=== PATIENT | female | born 1965 | race Caucasian/White ===

== ENCOUNTER 2020-08-09 09:47 | Outpatient (CLI) | payer SELFPAY ==
--- NOTE | ~2020-08-09 | MM_ITS ---
EXAMINATION: MM screening [facility] BI w elida HISTORY: Screening TECHNIQUE: Craniocaudal and mediolateral oblique 3-D tomosynthesis images were obtained and synthetic 2-D images were generated. CAD analysis was submitted and interpreted. COMPARISON: Comparison to multiple prior studies sequentially, with oldest reviewed study dated 02/2016. BREAST PARENCHYMAL COMPOSITION: The breasts are extremely dense, which lowers the sensitivity of mamm ography. FINDINGS: There is no evidence of suspicious mass, calcification, or architectural distortion to sugg est malignancy in either breast. There has been no suspicious interval change. IMPRESSION: 1. No mammographic evidence of malignancy. 2. Recommend routine screening mammography in one year. BI-RADS Category 1: Negative Reviewed, dictated and finalized at location [facility]. ERER TORCH
== END 2020-08-09 09:48 | disposition home or self-care (01) ==
LOC: ANHIMG 09:52
PROVIDERS: PCP Obstetrics & Gynecology; Visit Provider Nurse Practitioner Obstetrics & Gynecology
DX: Z12.31 Encounter for screening mammogram for malignant neoplasm of breast (principal)
CPT/HCPCS: 77063; 77067

== ENCOUNTER 2020-09-24 16:37 | Emergency (ER) | payer OTHER, SELFPAY ==
--- NOTE | ~2020-09-24 | CT_ITS ---
EXAMINATION: CT abdomen pelvis w con DATE: 09/24/2020 18:53 INDICATION: Right lower quadrant abdominal pain TECHNIQUE: Computed tomography (CT) of the abdomen and pelvis was performed with 100 cc Omnipaque 350 intravenous contrast. Automated exposure control and iterative reconstruction technique were employe d. Exam dose: 263.59 mGy-cm total exam DLP. COMPARISON: None. FINDINGS: There is minimal dependent bilateral lower lobe atelectasis. Lower lung zones are clear of consolidation. Normal heart size. No pericardial or pleural effusion. The liver, gallbladder, spleen, pancreas, bile ducts and pancreatic duct, and adrenal glands and kidn eys are unremarkable, with the exception of 8 mm probable left renal cyst. No urinary tract calculus or hydroureteronephrosis is evident. The urinary bladder is unremarkable. The uterus and adnexal area s are unremarkable. There is minimal possibly physiologic free fluid in the dependent pelvis. Normal caliber of the abdominal aorta. No intraperitoneal or retroperitoneal or pelvic mass lesion or adenopathy. There is extensive inflammatory change around the hepatic flexure of the colon. There is diverticulos is in this area. There is thickening of the wall of the hepatic flexure of the colon. The findings page ggest diverticulitis of the hepatic flexure of the colon. Normal appendix. No abscess is identified. No bowel obstruction or bowel wall thickening is noted oth erwise. Included skeletal structures are unremarkable. IMPRESSION: Diverticulitis of the hepatic flexure of colon; no abscess is identified. Normal appendix. Minimal probable physiologic free fluid in the dependent pelvis Probable 8 mm left renal cyst Reviewed, dictated and finalized at [facility]. Reviewed, dictated and finalized at location [facility]. 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 Normal appendix. Minimal probable physiologic free fluid in the dependent pelvis Probable 8 mm left renal cyst
--- NOTE | ~2020-09-24 | US_ITS ---
US pelvic complete w TV DATE: 09/24/2020 17:50 INDICATION: Right adnexal pain TECHNIQUE: Real-time imaging via transabdominal and transvaginal approaches COMPARISON: None FINDINGS: The uterus measures 7 cm height, 4 cm transverse and 3.6 cm anteroposterior dimension. The central endometrial echo complex measures 1.5 cm. Right ovary measures approximately 1.6 x 1.1 x 1.5 cm. Left ovary measures approximately 1.6 x 1.5 x 1.9 cm. There is vascular flow to both ovaries. No pelvic mass or abnormal pelvic fluid collection is evident. IMPRESSION: No significant abnormality Reviewed, dictated and finalized at [facility]. Reviewed, dictated and finalized at location [facility]. 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
[2020-09-24 16:44] VITALS: BP 131/90; PULSE 90; RESP 18; TEMP 36.8; O2SAT 100
--- NOTE | 2020-09-24 17:42 | ED.ABDPAIN ---
HPI - Abdominal Pain General Chief Complaint: Abdominal Pain Stated Complaint: RLQ ABD PAIN Time Seen by Provider: 09/24/20 16:40 Source: patient Mode of arrival: ambulatory Limitations: no limitations History of Present Illness HPI narrative: Patient is a 54-year-old female who presents to emergency department with right lower abdominal pain patient notes that the pain began last night has persisted into the day the pain did cause some nausea and vomiting patient notes that she did have a rough intercourse prior night but denies discharge or vaginal bleeding patient on arrival to emergency department does not appear to be in distress is uncomfortable with activity and movement patient took Tylenol with some improvement Related Data Allergies Allergy/AdvReac Type Severity Reaction Status Date / Time No Known Allergies Verified 09/24/20 17:58 Review of Systems Review of Systems: All systems reviewed & are unremarkable except as noted in HPI and below PMFSH Past Medical History Medical History (Updated 09/24/20 @ 19:27 by Marcell Eng PA-C) Ovarian cyst Family History Family History (Updated 04/27/14 @ 07:13 by DOCTOR UNKNOWN) Mother Family history of thyroid disease Father Family history of elevated blood lipids Grandparent Family history of Alzheimer's disease Family history of lung cancer Social History Social History Smoking status: Never smoker Second hand tobacco smoke exposure: No Alcohol intake: current Exam Narrative: Exam Narrative: GENERAL: Well-appearing, well-nourished, and in no acute distress. HEAD: Normocephalic, atraumatic. EYES: PERRLA and EOMI. ENT: Nares clear, no rhinorrhea or epistaxis. Mucous membranes moist. CHEST: Clear to auscultation. No respiratory distress. No wheezes rales or rhonchi HEART: Regular rate and rhythm. No murmur heard. Normal peripheral pulses. ABDOMEN: Soft, tenderness throughout the abdomen with voluntary guarding in the right lower quadrant, nondistended EXTREMITIES: Normal range of motion. No edema. SKIN: Warm, dry, no rash. NEURO: No focal deficits. Alert and oriented x3. PSYCH: Normal mood and affect. Course Course Emergency Course: Patient is a 54-year-old female who presented with right-sided abdominal pain that began acutely today patient was found to have diverticulitis no abscess no perforation patient with marked improvement with medications in the emergency department was hydrated patient is afebrile nontoxic-appearing without emesis will be discharged home provided with GI referral given strict reasons to return felt appropriate for outpatient reevaluation Vital Signs Vital signs: Vital Signs Temperature 98.2 F 09/24/20 16:44 Pulse Rate 90 09/24/20 16:44 Respiratory Rate 18 09/24/20 16:44 Blood Pressure 131/90 09/24/20 16:44 Pulse Oximetry 100 09/24/20 16:44 Temperature 98.2 F 09/24/20 16:44 Pulse Rate 90 09/24/20 16:44 Respiratory Rate 18 09/24/20 16:44 Blood Pressure 131/90 09/24/20 16:44 Pulse Oximetry 100 09/24/20 16:44 MDM - Abdominal Pain MDM Narrative Medical decision making narrative: Patient with diagnosis of diverticulitis no complications seen will be given GI referral patient agrees with this plan and feels comfortable with outpatient management Differential Diagnosis Differential diagnosis: Likely abdominal pain and diverticulitis Lab Data Result diagrams: 09/24/20 17:59 09/24/20 17:59 Labs: Lab Results 09/24/20 09/24/20 09/24/20 Range/Units 17:59 17:59 19:05 WBC 13.3 H (4.5-10.0) K/mm3 RBC 3.99 L (4.2-5.4) M/mm3 Hgb 12.8 (12.0-15.0) g/dL Hct 37.3 (37.0-47.0) % MCV 93.5 (80-100) fl MCH 32.1 (26-34) pg MCHC 34.3 (32-36) g/dl RDW 12.6 (11.5-14.5) % Plt Count 160 (150-375) k/mm3 MPV 10.2 (7.4-10.4) fl Immature Gran % (Auto) 0.3 (
[2020-09-24] MEDS: SODIUM CHLORIDE 0.9% IV 1,000 ML 999 ML IV CONT (17:57)
[2020-09-24] MEDS: FAMOTIDINE 20 MG/2 ML VIAL IV PUSH (17:57)
[2020-09-24 18:07] LABS: Basophils Percent Auto 0.2 % (0.2-1.2); Eosinophils Percent Auto 0.1 % (0-4.4); Hematocrit 37.3 % (37.0-47.0); Hemoglobin 12.8 g/dL (12.0-15.0); Immature Granulocyte Absolute 0.04 K/mm3 (0.00-0.031); Immature Granulocyte Percent A 0.3 % (0-0.5); Lymphocytes Absolute Auto 0.68 K/mm3 (0.9-3.2); Lymphocytes Percent Auto 5.1 % (18.3-44.2); Mean Corpuscular HGB Conc 34.3 g/dl (32-36); Mean Corpuscular Hemoglobin 32.1 pg (26-34); Mean Corpuscular Volume 93.5 fl (80-100); Mean Platelet Volume 10.2 fl (7.4-10.4); Monocytes Absolute Auto 0.7 K/mm3 (0.1-0.6); Monocytes Percent Auto 5.2 % (2.6-8.5); Neutrophils Absolute Auto 11.8 K/mm3 (1.3-6.7); Neutrophils Percent Auto 89.1 % (45.5-73.1); Platelet Count Result 160 k/mm3 (150-375); Red Blood Count 3.99 M/mm3 (4.2-5.4); Red Cell Distribution Width 12.6 % (11.5-14.5); White Blood Count 13.3 K/mm3 (4.5-10.0)
[2020-09-24 18:19] LABS: Alanine Aminotransferase 15 U/L (4-35); Albumin Level 4.3 g/dL (3.5-5.1); Alkaline Phosphatase 50 U/L (38-126); Anion Gap 6 mmol/L (8-16); Aspartate Amino Transferase 24 U/L (14-36); Bilirubin,Total 0.9 mg/dL (0.2-1.3); Blood Urea Nitrogen 14 mg/dL (7-17); Calcium 9.4 mg/dL (8.4-10.2); Carbon Dioxide 31 mmol/L (22-30); Chloride 99 mmol/L (98-107); Estimated CRCL calculation 72 ml/min; Estimated Glomerular Filt Rate > 60; Glucose 119 mg/dL (65-105); Lipase 49 U/L (23-300); Potassium 3.5 mmol/L (3.4-5.0); Sodium 136 mmol/L (137-145)
--- NOTE | 2020-09-24 18:47 | PC.NURSE ---
PT TO CT AT THIS TIME
--- NOTE | 2020-09-24 18:48 | PC.NURSE ---
PT UNABLE TO PROVIDE URINE SAMPLE, FLUIDS INFUSING, STATES WILL TRY LATER
[2020-09-24 19:15] LABS: Add Urine Microscopic? YES; Appearance Urine Clear (Clear); Bilirubin Urine Negative (Negative); Blood Urine Negative (Negative); Color Urine Straw (Yellow); Glucose Urine UA Negative (Negative); Ketones Urine 1+ mg/dL (Negative); Leukocyte Esterase Ur Negative LEU/UL (Negative); Mucus Urine Rare /lpf; Nitrate Urine Negative (Negative); Protein Urine Negative (Negative); RBC Urine 0-2 /hpf (0-2); Specific Grav Ur 1.026 (1.001-1.035); Urobilinogen Urine Negative mg/dL (<2.0); WBC Urine 0-3 /hpf
[2020-09-24 19:49] VITALS: BP 131/84; PULSE 82; RESP 16; TEMP 36.7; O2SAT 98
== END 2020-09-24 19:50 | disposition home or self-care (01) ==
PROVIDERS: Emergency Medicine Emergency Medical Services; Emergency Provider Emergency Medicine; Family Provider Internal Medicine; PCP Physician Assistant
DX: K57.32 Diverticulitis of large intestine without perforation or abscess without bleeding (principal); R93.422 Abnormal radiologic findings on diagnostic imaging of left kidney
CPT/HCPCS: 36415; 74177; 76830; 76856; 80053; 81001; 83690; 85025; 96361; 96374; 99284; J7030; Q9967

== ENCOUNTER → 2020-12-25 00:43 | Outpatient (CLI) | payer OTHER, SELFPAY ==
[2020-12-25 20:47] LABS: SARS-CoV-2 RNA PCR Negative
== END ==
PROVIDERS: PCP Physician Assistant; Visit Provider Internal Medicine Gastroenterology
DX: Z01.812 Encounter for preprocedural laboratory examination (principal); Z20.822 Contact with and (suspected) exposure to COVID-19
CPT/HCPCS: C9803; U0003; U0005

== ENCOUNTER 2020-12-28 01:20 | Day surgery (SDC) | payer OTHER, SELFPAY ==
[2020-12-18 13:38] VITALS: BMI 19.8
[2020-12-28 09:27] VITALS: BP 111/72; PULSE 66; RESP 20; TEMP 36.6; O2SAT 100
[2020-12-28] MEDS: LACTATED RINGERS 1,000 ML 150 ML IV CONT (09:35)
--- NOTE | 2020-12-28 10:22 | WPDANESEPPF ---
Anes - Initial Pre Proc Eval Procedure: Operation Date: 12/28/20 10:30 Proposed Procedures p Colonoscopy - Michael Dan MD Date/Time: 12/28/20 10:22 Surgeon: Michael Dan MD Pre Op Diagnosis: diverticulitis Patient Data Age: 55 Gender: F Height: 5 ft 8 in Weight: 59.3 kg Last Vital Signs Temp 97.8 F 12/28/20 09:27 Pulse 66 12/28/20 09:27 Resp 20 12/28/20 09:27 BP 111/72 12/28/20 09:27 Pulse Ox 100 12/28/20 09:27 Allergies Allergy/AdvReac Type Severity Reaction Status Date / Time No Known Allergies Verified 10/24/20 13:20 Home Medications Medication Instructions Recorded Confirmed Type conj estrog-medroxyprogest iveth 10 tablet PO DAILY 12/18/20 12/18/20 History [Prempro] escitalopram oxalate [Lexapro] 10 mg PO DAILY 12/18/20 12/28/20 History Patient hx anesthesia problems: none Family hx anesthesia problems: none PMFSH Past Medical History Medical History (Updated 12/28/20 @ 10:22 by Rakesh Carpenter MD) Frequent PVCs Ovarian cyst Family History Family History Mother Family history of thyroid disease Father Family history of elevated blood lipids Grandparent Family history of Alzheimer's disease Family history of lung cancer Social History Social History Smoking status: Never smoker Second hand tobacco smoke exposure: No Alcohol intake: current Substance use type: does not use Living arrangements: with family Gender identity (if verbalized by the patient): Female Anes - Eval Final PreProcedure Day of Procedure 12/28/20 10:22 Patient weight: normal Heart: regular rate and rhythm Lungs: clear to auscultation Airway: Mallampati scale class II Neurological: alert and oriented Last oral intake: >/= 8 hours ASA classification: II Emergent: no Anesthetic plan: proceed Anesthesia type and monitoring: general GIVS and standard monitoring Informed Consent: The patient's anesthetic plan and its attendant risks and benefits were discussed with the patient/family/POA. Questions were solicited and answers provided to the satisfaction of the patient/family/POA.
--- NOTE | 2020-12-28 10:33 | PM.HPGS ---
History of Present Illness History of Present Illness Consent: Risks, benefits, and alternatives have been discussed and questions answered. Patient agrees to proceed with procedure. Chief complaint: diverticulitis Narrative: Viviane Cardozo is a 55 year old female with diverticulitis in August, asymptomatic now, last colonoscopy 2009 Review of Systems Constitutional: Constitutional: Denies headache(s) and Denies weakness Eyes: Eyes: Denies blurry vision ENT: Reports Normal hearing present, Denies headache(s) and Denies neck pain Cardiovascular: Cardiovascular: Denies chest pain and Denies dyspnea Respiratory: Respiratory: Denies dyspnea Gastrointestinal: Gastrointestinal: Reports no additional gastrointestinal complaints Genitourinary: Genitourinary: Denies dysuria Musculoskeletal: Musculoskeletal: Denies neck pain Integumentary/Breasts: Skin/Breast: Denies dry skin Neurologic: Reports Normal hearing present, Denies headache(s) and Denies weakness Psychiatric: Psychiatric: Denies anxiety Endocrine: Endocrine: Denies change in body appearance Hematologic/Lymphatic: Hematologic/Lymphatic: Denies easy bleeding Allergic/Immunologic: Allergic/Immunologic: Denies urticaria PMFSH Past Medical History Medical History (Updated 12/28/20 @ 10:34 by Michael Dan MD) Colon cancer screening Frequent PVCs Ovarian cyst Family History Family History Mother Family history of thyroid disease Father Family history of elevated blood lipids Grandparent Family history of Alzheimer's disease Family history of lung cancer Social History Social History Smoking status: Never smoker Second hand tobacco smoke exposure: No Alcohol intake: current Substance use type: does not use Living arrangements: with family Gender identity (if verbalized by the patient): Female Meds Home Medications and Allergies Home Medications Medication Instructions Recorded Confirmed Type conj estrog-medroxyprogest iveth 10 tablet PO DAILY 12/18/20 12/18/20 History [Prempro] escitalopram oxalate [Lexapro] 10 mg PO DAILY 12/18/20 12/28/20 History Allergies Allergy/AdvReac Type Severity Reaction Status Date / Time No Known Allergies Verified 10/24/20 13:20 Vital Signs Vital Signs - 24 hr 12/28/20 09:27 Temperature 97.8 F Pulse Rate 66 Respiratory Rate 20 Blood Pressure 111/72 Pulse Oximetry 100 Exam Const: General: comfortable and no acute distress HENMT: General nose exam: Normal nares present Eyes: General: appearance normal, both eyes and all related structures Neck: Neck: no JVD Resp: Auscultation: clear to auscultation bilaterally Cardio: Rate: regular rate Rhythm: regular rhythm GI: Inspection: non-distended GI Palp: Yes Soft to palpation Skin: General skin exam: normal color Neuro: General: gait normal Speech: normal speech Extrem: General: normal to inspection Psych: Mental Status: mental status grossly normal Assessment and Plan Assessment and plan (1) Colon cancer screening: Code(s): Z12.11 - Encounter for screening for malignant neoplasm of colon Status: Acute Assessment and Plan: colonoscopy
[2020-12-28 10:54] VITALS: BP 86/46; PULSE 61; RESP 23; O2SAT 100
[2020-12-28 11:04] VITALS: BP 96/54; PULSE 51; RESP 20; O2SAT 100
[2020-12-28 11:14] VITALS: BP 100/60; PULSE 54; RESP 16; O2SAT 100
== END 2020-12-28 11:23 | disposition home or self-care (01) ==
PROVIDERS: PCP Physician Assistant; Visit Provider Internal Medicine Gastroenterology
PROC: 0DJD8ZZ Inspection of Lower Intestinal Tract, Via Natural or Artificial Opening Endoscopic (ICD-10-PCS; CPT 45378; principal; 2020-12-28 10:30)
DX: Z12.11 Encounter for screening for malignant neoplasm of colon (principal); K57.30 Diverticulosis of large intestine without perforation or abscess without bleeding; K64.8 Other hemorrhoids; I49.3 Ventricular premature depolarization
CPT/HCPCS: 45378; C9803; J2704; J7120; U0003; U0005

== ENCOUNTER 2023-03-09 08:03 | Outpatient (CLI) | payer OTHER, SELFPAY ==
--- NOTE | ~2023-03-09 | MM_ITS ---
EXAMINATION: MM screening [facility] BI w elida HISTORY: Screening mammogram TECHNIQUE: Craniocaudal and mediolateral oblique 3-D tomosynthesis images were obtained and synthetic 2-D images were generated. CAD analysis was submitted and interpreted. COMPARISON: 08/09/2020, 08/22/2019, 07/27/2018 BREAST PARENCHYMAL COMPOSITION:The breasts are extremely dense, which lowers the sensitivity of mammo graphy. FINDINGS: No suspicious mass, calcification, or architectural distortion are identified in either jina ast to suggest malignancy. There has been no suspicious interval change. IMPRESSION: No mammographic evidence of malignancy. Recommend routine screening mammography in one year. BI-RADS Category 1: Negative Reviewed, dictated and finalized at location .
== END 2023-03-09 08:04 | disposition home or self-care (01) ==
LOC: ANHIMG 08:11
PROVIDERS: PCP Physician Assistant; Visit Provider Obstetrics & Gynecology
DX: Z12.31 Encounter for screening mammogram for malignant neoplasm of breast (principal)
CPT/HCPCS: 77063; 77067

== ENCOUNTER 2024-09-16 09:06 | Outpatient (CLI) | payer OTHER, SELFPAY ==
--- NOTE | ~2024-09-16 | MR_ITS ---
EXAMINATION: MR brain/brain stem wo/w con DATE: 09/16/2024 10:33 INDICATION: Dizziness and giddiness. TECHNIQUE: Magnetic resonance imaging (MRI) of the brain and brainstem was performed without and with 15 mL MultiHance intravenous contrast. COMPARISON: None. FINDINGS: There is no intracranial hemorrhage, acute infarction, or abnormal intracranial mass lesion . The ventricles are normal in size. There is mucosal thickening in the paranasal sinuses. There are mucous retention cysts in the maxillary sinuses. The orbits are normal. The mastoid air cells are nor mal. IMPRESSION: 1. Normal brain. Reviewed, dictated and finalized at location A. PENDENT CROP CONSULTANT IMPRESSION: 1. Normal brain.
--- NOTE | ~2024-09-16 | US_ITS ---
Right upper quadrant ABDOMINAL ULTRASOUND Ordering provider: Elly Ferreira, ALBARO History: . Reactive hypoglycemia . Comparison: None. FINDINGS: LIVER: Normal size and echotexture. No focal hepatic lesions or perihepatic fluid collections are kenny ntified. Portal vein flow is normal. GALLBLADDER: Unremarkable. No evidence for stones, sludge, gallbladder wall thickening or pericholecy stic fluid collections. The wall thickness is 0.2 cm. A negative sonographic Case's sign was noted. BILIARY DUCTS: No evidence for intra or extrahepatic biliary dilation. Common bile duct measures 3 mm in diameter which is within normal limits. PANCREAS: Normal echotexture and size. KIDNEYS: Right measures 9.1 cm in length . There is no evidence for hydronephrosis, solid renal mass, renal calculi or perinephric fluid collections. No renal cysts. UPPER ABDOMINAL AORTA: Normal in caliber. IVC: Patent. FREE FLUID: None. IMPRESSION: Unremarkable right upper quadrant ultrasound of the abdomen. Reviewed, dictated and finalized at location A. LOG LIBRARIAN
== END 2024-09-16 09:07 | disposition home or self-care (01) ==
PROVIDERS: PCP Physician Assistant; Visit Provider Physician Assistant
DX: E16.1 Other hypoglycemia (principal); R42 Dizziness and giddiness
CPT/HCPCS: 70553; 76705; A9577